=== PATIENT | male | born 1960 | race Caucasian/White ===

== ENCOUNTER 2018-04-07 11:43 | Emergency (ER) | payer MEDICARE, BC ==
[2018-04-07] MEDS ORDERED: Bacitracin Oint 1 GM U/D Packet TOP ONE (12:05)
--- NOTE | 2018-04-07 13:04 | EDM.PDOC ---
ED HPI GENERAL MEDICAL PROBLEM - General Chief Complaint: Laceration Stated Complaint: LACERATION ON TWO LEFT FINGERS Time Seen by Provider: 04/07/18 12:30 Source of Information: Reports: Patient History Limitations: Reports: No Limitations - History of Present Illness INITIAL COMMENTS - FREE TEXT/NARRATIVE: 58-year-old male lacerated the ring and small finger of his left hand with a sharp piece of metal just prior to coming in. He has lacerations across the palmar surface of the distal aspect of the fingers near the DIP joints. He has normal distal sensation and movement. Onset: Sudden Duration: Hour(s): (Within the past hour) Location: Reports: Upper Extremity, Left Left 3-Middle finger Pain Score (Numeric/FACES): 6 - Related Data Allergies Allergy/AdvReac Type Severity Reaction Status Date / Time No Known Allergies Allergy Verified 04/07/18 12:15 Home Meds: Home Meds ALPRAZolam [Xanax] 2 mg PO BID 04/07/18 [History] FLUoxetine [PROzac] 10 mg PO DAILY 04/07/18 [History] Fexofenadine HCl [Susana Allergy] 60 mg PO DAILY 04/07/18 [History] buPROPion HCl [Wellbutrin SR] 150 mg PO BID 04/07/18 [History] Past Medical History Musculoskeletal History: Reports: Fracture Neurological History: Reports: Parkinson's Psychiatric History: Reports: Anxiety, Depression - Past Surgical History HEENT Surgical History: Reports: Other (See Below) Other HEENT Surgeries/Procedures: nasal surgery d/t broken nose Social & Family History - Tobacco Use Smoking Status *Q: Never Smoker - Recreational Drug Use Recreational Drug Use: No ED ROS GENERAL - Review of Systems Review Of Systems: See Below Constitutional: Denies: Fever Respiratory: Denies: Shortness of Breath GI/Abdominal: Denies: Nausea, Vomiting Neurological: Denies: Headache Psychiatric: Reports: No Symptoms ED EXAM, SKIN/RASH Exam: See Below Exam Limited By: No Limitations General Appearance: Alert, Anxious Respiratory/Chest: No Respiratory Distress Extremities: Other (Exam is otherwise limited to the left hand. Patient has a curved 2.5 cm laceration on the palmar surface of the small finger near the DIP joint. There is a 4 cm curved laceration on the palmar surface of the distal ring finger just past the DIP joint.) Course - Vital Signs Last Recorded V/S: Last Vital Signs Temp 96.6 F 04/07/18 12:14 Pulse 66 04/07/18 12:14 Resp 20 04/07/18 12:14 BP 140/98 H 04/07/18 12:14 Pulse Ox 100 04/07/18 12:14 - Orders/Labs/Meds Meds: Medications Discontinued Medications Generic Name Dose Route Start Last Admin Trade Name Chela PRN Reason Stop Dose Admin Bacitracin 1 dose 04/07/18 12:05 04/07/18 12:30 Bacitracin Oint 1 Gm TOP 04/07/18 12:06 1 dose ONETIME ONE Administration Lidocaine HCl 5 ml 04/07/18 12:05 04/07/18 12:30 Xylocaine-Mpf 1% INJECT 04/07/18 12:06 5 ml ONETIME ONE Administration - Radiology Interpretation Free Text/Narrative:: The wounds were infiltrated with 1% lidocaine and flushed thoroughly with saline and Hibiclens. 3 4-0 Ethilon sutures were used to close the small finger laceration, and 7 sutures were used to close the ring finger laceration. Topical bacitracin and dressings were applied. Patient is current on his tetanus status. Sutures can be removed in 8 days. Departure - Departure Time of Disposition: 13:18 Disposition: Home, Self-Care 01 Condition: Good Clinical Impression: Finger laceration Qualifiers: Encounter type: initial encounter Finger: little finger Damage to nail status: without damage Foreign body presence: without foreign body Laterality: left Qualified Code(s): S61.217A - Laceration without foreign body of left little finger without damage to nail, initial encounter Laceration of ring finger Qualifiers: Encounter type: initial encounter Damage to nail status: without damage - Discharge Information Instructions: Laceration Care, Adult, [id number] Referrals: Figueroa Mendes MD [Primary Care Provider] - Forms: ED Department Discharge Care Plan Goals: Keep wounds covered and clean while healing. Sutures can be removed in 8 days, recheck sooner if concerns of infection or not healing satisfactorily.
== END 2018-04-07 13:18 | disposition home or self-care (01) ==
LOC: JP.ED 11:43
DX: S61.215A Laceration without foreign body of left ring finger without damage to nail, initial encounter (principal); S61.217A Laceration without foreign body of left little finger without damage to nail, initial encounter; W26.8XXA Contact with other sharp object(s), not elsewhere classified, initial encounter; Z79.899 Other long term (current) drug therapy
CPT/HCPCS: 12002; 99283-25